=== PATIENT | female | born 1990 | race Two or more races ===

== ENCOUNTER 2016-06-06 18:50 | Inpatient (IN) | payer OTHER ==
[~2016-06-06] VITALS: Ht 165.1 cm; Wt 127.9 kg
[2016-06-06] MEDS ORDERED: IV NS 0.9% 500 ML BAG IV ONE (19:00)
[2016-06-06 19:17] LABS: BASOPHILS # (AUTO) 0.1 /CMM (0.0-0.2); BASOPHILS % (AUTO) 0.6 % (0.0-2.0); DIFF TOTAL % 100 %; EOSINOPHILS % (AUTO) 0.3 % (0.0-6.0); HEMATOCRIT 48 % (33-45); LYMPHOCYTES # (AUTO) 1.4 /CMM (0.8-4.8); LYMPHOCYTES % (AUTO) 10.9 % (20.0-44.0); MEAN CORPUSCULAR HEMOGLOBIN 29 PG (26.0-33.0); MEAN CORPUSCULAR HGB CONC 34 g/dl (31.0-36.0); MEAN CORPUSCULAR VOLUME 86 fL (82-100); MONOCYTES % (AUTO) 7.6 % (2.0-12.0); NEUTROPHILS # (AUTO) 10.7 /CMM (1.8-8.9); NEUTROPHILS % (AUTO) 80.6 % (43.0-81.0); PLATELET COUNT (AUTO) 325 /CMM (150-450); RED BLOOD CELL COUNT(AUTO) 5.52 MIL/uL (4.0-5.2); WHITE BLOOD COUNT (AUTO) 13.2 K/uL (4.3-11.0)
[2016-06-06] MEDS ORDERED: HALOPERIDOL LACTATE INJ 5 MG/ML VIAL ONE ×2 (19:22→19:49)
[2016-06-06] MEDS ORDERED: IV NS 0.9% 500 ML IV ONE ×2 (19:22→22:23)
[2016-06-06] MEDS ORDERED: IV SET PRIMARY PUMP SET 1 EA INFUS.SET MC ONE ×3 (19:22→20:21)
[2016-06-06 19:29] LABS: ADD UA MICROSCOPIC YES; KETONES,URINE 15 (NEGATIVE); LEUKOCYTE ESTERASE ,URINE Negative (NEGATIVE); PH,URINE 6.5 (5.0-8.0)
[2016-06-06] MEDS ORDERED: HALOPERIDOL LACTATE INJ 5 MG/ML VIAL IV ONE ×2 (19:30→20:00)
[2016-06-06 19:32] LABS: ANION GAP 15 (5-14); CALCIUM, SERUM 8.8 mg/dL (8.5-10.1); CARBON DIOXIDE 23 mmol/L (21-32); CHLORIDE 106 mmol/L (98-107); CREATININE 0.7 mg/dL (0.6-1.3); GFR 102 mL/min (>60); GLUCOSE 95 mg/dL (74-106); INR 0.95 (0.87-1.13); SODIUM SERUM 140 mmol/L (136-145); UREA NITROGEN, BLOOD 9 mg/dL (7-18)
[2016-06-06 19:35] LABS: TROPONIN I < 0.017 ng/mL (0.00-0.056)
[2016-06-06 19:36] LABS: ADD URINE CULTURE NO; PREGNANCY TEST URINE QUAL NEGATIVE (NEGATIVE); WBC,URINE 0-2 /HPF (0-3)
[2016-06-06 19:42] LABS: ALANINE AMINOTRANSFERASE 50 U/L (12-78); ALBUMIN 3.4 g/dL (3.4-5.0); ASPARTATE AMINOTRANSFERASE 38 U/L (15-37); BILIRUBIN,DIRECT 0.1 mg/dL (0.0-0.2); BILIRUBIN,TOTAL 0.4 mg/dL (0.2-1.0); TOTAL PROTEIN, SERUM 7.7 g/dL (6.4-8.2)
[2016-06-06 19:42] LABS: CANNABINOID, URINE POSITIVE (NEGATIVE); PHENCYCLIDINE SCREEN,URINE NEGATIVE (NEGATIVE)
[2016-06-06 19:43] LABS: ACETAMINOPHEN < 2 ug/ml (10-30); INDIRECT BILIRUBIN 0.3 mg/dL (0.0-1.1)
[2016-06-06 19:44] LABS: SALICYLATE 36.8 mg/dL (2.8-20.0)
[2016-06-06] MEDS ORDERED: IV SET PRIMARY 1 EA INFUS.SET MC ONE (20:03)
[2016-06-06] MEDS ORDERED: IV LR 1000 ML 1,000 ML ONE ×2 (20:03→20:18)
[2016-06-06] MEDS ORDERED: POTASSIUM CL. PREMIX PERIPHER. 100 ML ONE (20:21)
[2016-06-06] MEDS ORDERED: SODIUM BICARBONATE SYR 50 MEQ/50 ML DISP.SYRIN ONE (20:21)
[2016-06-06] MEDS ORDERED: IV D5W 1,000 ML IV ONE (20:22)
[2016-06-06] MEDS ORDERED: IV LR 1000 ML 1,000 ML IV ONE (20:30)
[2016-06-06] MEDS ORDERED: Sodium Bicarbonate 150 MEQ in IV D5W 1,000 ML IV PRN (20:30)
[2016-06-06] MEDS: POTASSIUM CL. PREMIX PERIPHER. 50 ML IV SCH (20:50)
[2016-06-06 21:09] LABS: ABG BASE EXCESS 0.8 mmol/L; ABG HCO3 24.2 mmol/L; ABG PCO2 34.8 mmHg (35.0-45.0); ABG TOTAL HEMOGLOBIN 13.6 G/dL (12.0-16.0); ALLEN TEST Pass; AaDO2 48.1 mmHg; O2Hb 90.5 % (94.0-97.0)
[2016-06-06 22:26] VITALS: BP 113/85
[2016-06-06 23:00] VITALS: BP 117/80
[2016-06-06] MEDS ORDERED: LIDOCAINE HCL/PF 1% 30 ML SDV ONE (23:09)
[2016-06-06 23:30] VITALS: BP 106/73
[2016-06-06] MEDS ORDERED: LIDOCAINE 0.5% HCL 50 ML VIAL TP ONE (23:30)
[2016-06-07] VITALS (13 sets, daily range): BP systolic 79–133; BP diastolic 42–89
[2016-06-07] MEDS ORDERED: ACETAMINOPHEN 325 MG TABLET PO PRN
[2016-06-07] MEDS ORDERED: ZOLPIDEM TARTRATE 5 MG TABLET PO PRN
[2016-06-07] MEDS ORDERED: HYDROCODONE/APAP 5/325MG 1 EACH TABLET PO PRN
[2016-06-07] MEDS ORDERED: Z GUARD REMEDY 2 OZ OINT TP PRN
[2016-06-07] MEDS ORDERED: ONDANSETRON HCL/PF 4 MG/2 ML VIAL IVP PRN
[2016-06-07 00:07] LABS: CALCIUM, SERUM 7.9 mg/dL (8.5-10.1); CREATININE 0.7 mg/dL (0.6-1.3); POTASSIUM 3.8 mmol/L (3.5-5.1)
[2016-06-07] MEDS ORDERED: IV NS 0.9% 1,000 ML ONE (01:15)
[2016-06-07] MEDS: IV NS 0.9% 1,000 ML IV PRN ×2 (01:19→16:03)
[2016-06-07 05:24] LABS: BASOPHILS % (AUTO) 0.4 % (0.0-2.0); DIFF TOTAL % 100 %; EOSINOPHILS # (AUTO) 0.1 /CMM (0.0-0.7); EOSINOPHILS % (AUTO) 0.6 % (0.0-6.0); HEMATOCRIT 41 % (33-45); HEMOGLOBIN 13.5 g/dL (11.5-14.8); LYMPHOCYTES # (AUTO) 2.7 /CMM (0.8-4.8); LYMPHOCYTES % (AUTO) 24.6 % (20.0-44.0); MEAN CORPUSCULAR HEMOGLOBIN 29 PG (26.0-33.0); MEAN CORPUSCULAR HGB CONC 33 g/dl (31.0-36.0); MEAN CORPUSCULAR VOLUME 87 fL (82-100); MONOCYTES % (AUTO) 8.9 % (2.0-12.0); NEUTROPHILS # (AUTO) 7.1 /CMM (1.8-8.9); NEUTROPHILS % (AUTO) 65.5 % (43.0-81.0); PLATELET COUNT (AUTO) 284 /CMM (150-450); RED BLOOD CELL COUNT(AUTO) 4.67 MIL/uL (4.0-5.2); WHITE BLOOD COUNT (AUTO) 10.8 K/uL (4.3-11.0)
[2016-06-07 05:30] LABS: CREATININE 0.6 mg/dL (0.6-1.3); POTASSIUM 3.4 mmol/L (3.5-5.1)
[2016-06-07 07:43] LABS: CALCIUM, SERUM 7.8 mg/dL (8.5-10.1); CREATININE 0.6 mg/dL (0.6-1.3); PHOSPHORUS 4.1 mg/dL (2.5-4.9)
[2016-06-07] MEDS: PANTOPRAZOLE 40 MG TABLET.DR PO SCH (08:06)
[2016-06-07 08:21] LABS: SALICYLATE 31.9 mg/dL (2.8-20.0)
[2016-06-07] MEDS ORDERED: IV SET PRIMARY PUMP SET 1 EA INFUS.SET MC ONE (10:57)
[2016-06-07] MEDS ORDERED: SECONDARY IV SET 1 EA INFUS.SET MC ONE (10:57)
[2016-06-07] MEDS: Magnesium 1GM/D5W 100ML PREMIX 100 ML IV SCH ×2 (11:07→12:06)
[2016-06-07] MEDS: POTASSIUM CL. PREMIX PERIPHER. 50 ML IV SCH ×4 (11:07→14:58)
[2016-06-07 11:17] LABS: CALCIUM, SERUM 7.8 mg/dL (8.5-10.1); CREATININE 0.7 mg/dL (0.6-1.3); POTASSIUM 3.1 mmol/L (3.5-5.1)
[2016-06-07 11:22] LABS: SALICYLATE 29.1 mg/dL (2.8-20.0)
[2016-06-07 12:48] LABS: ABG BASE EXCESS -2.2 mmol/L; ABG HCO3 20.6 mmol/L; ABG PH 7.455 (7.350-7.450); ABG PO2 95.4 mmHg (75.0-100.0); ABG TOTAL HEMOGLOBIN 12.9 G/dL (12.0-16.0); ALLEN TEST Pass; AaDO2 18.4 mmHg; O2Hb 94.9 % (94.0-97.0)
[2016-06-07] MEDS ORDERED: QUETIAPINE FUMARATE 25 MG TABLET PO SCH (22:00)
[2016-06-08] MEDS: IV NS 0.9% 1,000 ML IV PRN (02:58)
[2016-06-08 06:27] LABS: CALCIUM, SERUM 7.7 mg/dL (8.5-10.1); CREATININE 0.6 mg/dL (0.6-1.3); PHOSPHORUS 3.5 mg/dL (2.5-4.9); POTASSIUM 3.8 mmol/L (3.5-5.1); SALICYLATE 12.9 mg/dL (2.8-20.0)
[2016-06-08 07:33] LABS: BASOPHILS # (AUTO) 0.1 /CMM (0.0-0.2); BASOPHILS % (AUTO) 0.6 % (0.0-2.0); DIFF TOTAL % 100 %; EOSINOPHILS # (AUTO) 0.4 /CMM (0.0-0.7); EOSINOPHILS % (AUTO) 5.3 % (0.0-6.0); HEMATOCRIT 34 % (33-45); HEMOGLOBIN 11.6 g/dL (11.5-14.8); LYMPHOCYTES # (AUTO) 2.9 /CMM (0.8-4.8); LYMPHOCYTES % (AUTO) 35.8 % (20.0-44.0); MEAN CORPUSCULAR HEMOGLOBIN 30 PG (26.0-33.0); MEAN CORPUSCULAR HGB CONC 34 g/dl (31.0-36.0); MEAN CORPUSCULAR VOLUME 88 fL (82-100); MONOCYTES # (AUTO) 0.7 /CMM (0.1-1.30); MONOCYTES % (AUTO) 8.4 % (2.0-12.0); NEUTROPHILS % (AUTO) 49.9 % (43.0-81.0); PLATELET COUNT (AUTO) 221 /CMM (150-450)
[2016-06-08 08:00] VITALS: BP 115/71
[2016-06-08] MEDS: PANTOPRAZOLE 40 MG TABLET.DR PO SCH (08:25)
[2016-06-08] MEDS ORDERED: QUET25TA PO (10:58)
== END 2016-06-08 17:25 | DRG 812 ==
LOC: ER 18:53 → ICU 21:20 → MED 06-07 06:23 → TELE 06-07 06:40 → MED 06-07 11:24
PROVIDERS: ADMIT Nurse Practitioner Acute Care; ATTEND Nurse Practitioner Acute Care
DX: T39.012A Poisoning by aspirin, intentional self-harm, initial encounter (principal); E87.3 Alkalosis; D72.829 Elevated white blood cell count, unspecified; Y92.89 Other specified places as the place of occurrence of the external cause; Z59.0 Homelessness; R09.02 Hypoxemia; F12.90 Cannabis use, unspecified, uncomplicated; Z91.5 Personal history of self-harm; F31.9 Bipolar disorder, unspecified; J45.909 Unspecified asthma, uncomplicated; Z90.49 Acquired absence of other specified parts of digestive tract; E86.0 Dehydration
CPT/HCPCS: 36415; 36600; 71010-TC; 80048-TC; 80061-TC; 80076-TC; 80305; 81000-TC; 82803-TC; 83735-TC; 84100-TC; 84484-TC; 84703-TC; 85025-TC; 85730-TC; 87081-TC; A4606; C1751; G0480; G6039-TC; J1630; J3475; J3480; J3490; J7030; J7040; J7070; J7120; Z7610